=== PATIENT | male | born 1935 | race Caucasian/White ===

== ENCOUNTER 2018-10-16 13:06 | Emergency (ER) | payer MEDICARE, OTHER ==
[~2018-10-16] VITALS: Ht 172.7 cm; Wt 82.8 kg
[2018-10-16] MEDS ORDERED: SODIUM CHLORIDE FLUSH 10ML SYR IVF ONE (14:00)
[2018-10-16 14:20] LABS: BASOPHILS # (AUTO) 0.01 x10^3/uL (0-0.1); BASOPHILS % (AUTO) 0 % (0-1); EOSINOPHILS # (AUTO) 0.01 x10^3/uL (0-0.4); EOSINOPHILS % (AUTO) 0 % (1-7); LYMPHOCYTES # (AUTO) 0.88 x10^3/uL (1-3.4); LYMPHOCYTES % (AUTO) 11 % (22-44); MD NO; MEAN CORPUSCULAR HEMOGLOBIN 30.9 pg (27.5-34.5); MEAN CORPUSCULAR HGB CONC 33.5 g/dL (33.2-36.2); MEAN CORPUSCULAR VOLUME 92.3 fL (81-97); MEAN PLATELET VOLUME 7.4 fL (7.4-10.4); MONOCYTES # (AUTO) 0.92 x10^3/uL (0.2-0.8); MONOCYTES % (AUTO) 12 % (2-9); NEUTROPHILS # (AUTO) 5.93 x10^3/uL (1.8-6.8); NEUTROPHILS % (AUTO) 77 % (42-75); PLATELET COUNT 219 x10^3/uL (130-400); RED BLOOD COUNT 3.79 x10^6/uL (4.38-5.82); RED CELL DISTRIBUTION WIDTH 13.6 % (9.4-14.8)
[2018-10-16 14:31] LABS: ALANINE AMINOTRANSFERASE 26 U/L (12-78); ALBUMIN 3.4 g/dL (3.4-5.0); ANION GAP 4 mmol/L (5-15); CALCIUM 8.9 mg/dL (8.5-10.1); CHLORIDE 108 mmol/L (98-107); CREATININE 1.11 mg/dL (0.7-1.3)
[2018-10-16 14:33] LABS: ALKALINE PHOSPHATASE 92 U/L (45-117); BILIRUBIN,TOTAL 0.9 mg/dL (0.2-1.0); TOTAL PROTEIN 7.5 g/dL (6.4-8.2)
[2018-10-16 14:55] LABS: MICROSCOPIC AUTO
--- NOTE | 2018-10-16 14:56 | NUR ---
UNABLE TO PRODUCE STOOL SPECIMEN AT THIS TIME
[2018-10-16 15:04] LABS: CULTURE INDICATED? NO
[2018-10-16] MEDS ORDERED: OMNIPAQUE 350 MG/ML, 100ML BOTTLE ONE (16:57)
[2018-10-16 17:41] VITALS: BP 148/56
== END 2018-10-16 18:05 | disposition home or self-care (01) ==
LOC: ED 17:13
DX: K52.9 Noninfective gastroenteritis and colitis, unspecified (principal); I10 Essential (primary) hypertension
CPT/HCPCS: 36415; 74177; 80053; 81001; 83605; 83690; 85025; 99284; Q9967

== ENCOUNTER 2019-07-26 12:17 | Inpatient (IN) | payer OTHER ==
[~2019-07-26] VITALS: Ht 175.3 cm; Wt 79.9 kg
[~2019-07-26 12:17] MED LIST: AMLO-150 PO; DICL100G29 TD; FAMO-79 PO
--- NOTE | 2019-07-26 12:26 | NUR ---
pt to ed for multiple episodes of rue numbness and right facial droop with expressive aphasia, each lasting about 15 minutes and then resolve. pt [facility]. pt states he was seen here recently for same and left ama. pt states he had 1 episode last noc and one episode this morning, but states all symptoms have resolved. iv established pt connected to all monitors. all vss on ra. Dr. Hernández to bs. pt now agreeable to staying. awaiting orders.
[2019-07-26] MEDS ORDERED: SODIUM CHLORIDE FLUSH 10ML SYR IVF ONE (12:30)
--- NOTE | 2019-07-26 12:34 | NUR ---
dental laboratory technician apprentice to bs.
--- NOTE | 2019-07-26 12:47 | NUR ---
male tech to bs to assist with urination per pt request.
[2019-07-26 12:54] LABS: BASOPHILS # (AUTO) 0.03 x10^3/uL (0-0.1); BASOPHILS % (AUTO) 1 % (0-1); EOSINOPHILS # (AUTO) 0.05 x10^3/uL (0-0.4); EOSINOPHILS % (AUTO) 1 % (1-7); LYMPHOCYTES # (AUTO) 0.99 x10^3/uL (1-3.4); LYMPHOCYTES % (AUTO) 19 % (22-44); MD NO; MEAN CORPUSCULAR HEMOGLOBIN 31.9 pg (27.5-34.5); MEAN CORPUSCULAR HGB CONC 34.2 g/dL (33.2-36.2); MEAN CORPUSCULAR VOLUME 93.3 fL (81-97); MEAN PLATELET VOLUME 6.8 fL (7.4-10.4); MONOCYTES # (AUTO) 0.38 x10^3/uL (0.2-0.8); MONOCYTES % (AUTO) 7 % (2-9); NEUTROPHILS # (AUTO) 3.74 x10^3/uL (1.8-6.8); NEUTROPHILS % (AUTO) 72 % (42-75); PLATELET COUNT 215 x10^3/uL (130-400); RED BLOOD COUNT 3.93 x10^6/uL (4.38-5.82); RED CELL DISTRIBUTION WIDTH 14.1 % (9.4-14.8)
[2019-07-26 12:56] LABS: INTERNATIONAL NORMALIZED RATIO 1.01 (0.93-1.1); PROTHROMBIN TIME 10.6 Seconds (9.6-11.5)
[2019-07-26 12:57] LABS: ALBUMIN 3.6 g/dL (3.4-5.0); ANION GAP 5 mmol/L (5-15); CHLORIDE 110 mmol/L (98-107); CREATININE 1.08 mg/dL (0.7-1.3)
[2019-07-26 13:01] LABS: TROPONIN I < 0.015 ng/mL (0.000-0.045)
[2019-07-26] MEDS ORDERED: ASPIRIN 325 MG TABLET PO ONE (13:30)
--- NOTE | 2019-07-26 13:42 | NUR ---
per ems, 325 asa given at nm, prior to transport.
--- NOTE | 2019-07-26 13:54 | NUR ---
pt resting in room. male tech at bs to assist with urination. vss. no other needs expressed. call light within reach. awaiting room assignment.
[2019-07-26] MEDS ORDERED: SODIUM CHLORIDE FLUSH 10ML SYR IVF PRN (14:00)
[2019-07-26] MEDS ORDERED: ONDANSETRON 2MG/ML, 2ML IVPush PRN (14:00)
[2019-07-26] MEDS ORDERED: ACETAMINOPHEN 650 MG/20.3 ML UDC PO PRN (14:00)
--- NOTE | 2019-07-26 14:10 | NUR ---
pt to ct.
--- NOTE | 2019-07-26 14:38 | NUR ---
pt back from ct. vss. pt tolerated well. per ct staff, new iv established. no needs expressed. call light within reach. awaiting results and room assignment.
--- NOTE | 2019-07-26 15:13 | NUR ---
REPORT TO [facility]. PT READY FOR TRANSPORT.
[2019-07-26] MEDS ORDERED: OMNIPAQUE 350 MG/ML, 100ML BOTTLE ONE (15:36)
[2019-07-26 16:14] VITALS: BP 152/69
[2019-07-26 18:08] VITALS: BP 157/67
[2019-07-26] MEDS: SODIUM CHLORIDE 0.9% 1,000 ML IV SCH (18:12)
[2019-07-26 19:25] VITALS: BP 149/63
[2019-07-26] MEDS: ATORVASTATIN 40 MG TABLET PO SCH (20:49)
[2019-07-26] MEDS: FAMOTIDINE 20 MG TABLET PO SCH (20:49)
[2019-07-26 20:51] VITALS: BP 139/64
[2019-07-26 22:48] VITALS: BP 126/80
[2019-07-27 01:10] VITALS: BP 151/67
[2019-07-27 04:31] VITALS: BP 134/66
[2019-07-27 06:28] VITALS: BP 136/75
[2019-07-27] MEDS: ASPIRIN 81 MG TABLET CHEW PO/NG SCH (08:13)
[2019-07-27 12:19] VITALS: BP 148/75
[2019-07-27] MEDS: SODIUM CHLORIDE 0.9% 1,000 ML IV SCH ×2 (14:00→22:07)
[2019-07-27 16:00] VITALS: BP 142/76
[2019-07-27] MEDS: FAMOTIDINE 20 MG TABLET PO SCH (20:22)
[2019-07-27] MEDS: ATORVASTATIN 40 MG TABLET PO SCH (20:22)
[2019-07-27 21:12] VITALS: BP 124/66
[2019-07-28 00:25] VITALS: BP 122/64
[2019-07-28 02:43] VITALS: BP 139/72
[2019-07-28] MEDS: SODIUM CHLORIDE 0.9% 1,000 ML IV SCH (06:36)
[2019-07-28 07:18] VITALS: BP 149/68
[2019-07-28] MEDS ORDERED: ATOR20TA37 PO (10:16)
[2019-07-28] MEDS ORDERED: CLOP75TA PO (10:16)
[2019-07-28] MEDS ORDERED: ASPI-515 PO/NG (10:16)
[2019-07-28] MEDS: ASPIRIN 81 MG TABLET CHEW PO/NG SCH (10:27)
[2019-07-28 12:37] VITALS: BP 146/61
== END 2019-07-28 14:30 | disposition home or self-care (01) | DRG 66 ==
LOC: ED 13:45 → EDIP 13:46 → 4WST 15:42 → DCLOUNGE 07-28 14:09
PROVIDERS: ADMIT Internal Medicine; ATTEND Family Medicine
DX: I63.9 Cerebral infarction, unspecified (principal); I10 Essential (primary) hypertension; I65.22 Occlusion and stenosis of left carotid artery; K21.9 Gastro-esophageal reflux disease without esophagitis; N40.0 Benign prostatic hyperplasia without lower urinary tract symptoms; Z79.82 Long term (current) use of aspirin; Z87.891 Personal history of nicotine dependence; Z88.8 Allergy status to other drugs, medicaments and biological substances; G83.21 Monoplegia of upper limb affecting right dominant side
CPT/HCPCS: 0399T; 36415; 70496; 70498; 80048; 82040; 84484; 85025; 85610; 85730; 93005; 93306; 99285; G0378; Q9967; 92522-GN; J7030